=== PATIENT | male | born 1960 | race Caucasian/White ===

== ENCOUNTER 2021-02-19 | Emergency (ER) | payer OTHER ==
[2021-02-19] MEDS ORDERED: NAPROXEN500 MG PO ×2 (17:10→17:20)
[2021-02-19] MEDS ORDERED: CYCLOBENZAPRINE10 MG PO ×2 (17:10→17:20)
== END 2021-02-19 17:39 | disposition home or self-care (01) | DRG 552 ==
DX: S23.3XXA Sprain of ligaments of thoracic spine, initial encounter (principal); V49.40XA Driver injured in collision with unspecified motor vehicles in traffic accident, initial encounter